=== PATIENT | female | born 1960 | race Caucasian/White ===

== ENCOUNTER 2017-06-17 00:55 | Inpatient (IN) | END 2017-07-08 00:40 | disposition home health service (06) | DRG 253 ==

== ENCOUNTER 2017-07-24 02:05 | Inpatient (IN) | END 2017-09-21 14:50 | DRG 698 ==

== ENCOUNTER 2017-12-12 09:42 | Emergency (ER) | END 2017-12-12 13:40 | disposition home or self-care (01) ==

== ENCOUNTER → 2018-06-01 | Outpatient (CLI) | payer OTHER ==
[~2018-06-01] MED LIST: AMLO-147 PO; IOHEXOL 300MG/ML 30 ML BTL ONE; LEVO500T48 PO; METO-319 PO
== END | disposition home or self-care (01) ==
LOC: RAD 15:04
PROVIDERS: ATTEND Urology
DX: N13.30 Unspecified hydronephrosis (principal)
CPT/HCPCS: 74425; Q9967; Z7610

== ENCOUNTER 2018-06-15 10:05 | Day surgery (SDC) | payer OTHER ==
--- NOTE | 2018-06-14 17:21 | HPN ---
Date/Time of Note Date/Time of Note DATE: 06/14/18 TIME: 17:21 Interval H&P Admission Note Pt. seen H&P reviewed: No system changes RYLAN LYNN MD Jun 14, 2018 17:21
[~2018-06-15] VITALS: Ht 152.4 cm; Wt 61.8 kg
[2018-06-15] VITALS (9 sets, daily range): BP systolic 128–155; BP diastolic 41–72; PULSE 71–102; RESP 16–20; Ht 152.4 cm; Wt 61.8 kg
[~2018-06-15 10:05] MED LIST changes: -IOHEXOL 300MG/ML 30 ML BTL ONE; +SOD CHLORIDE 0.9% 1,000 ML IV SCH
[2018-06-15] MEDS ORDERED: HYDR-3671 PO (11:26)
[2018-06-15] MEDS ORDERED: CLON-379 PO (11:26)
--- NOTE | 2018-06-15 12:45 | PREAC ---
Date/Time of Note Date/Time of Note DATE: 06/15/18 TIME: 12:43 Anesthesia Eval and Record Evaluation Time Pre-Procedure Interview DATE: 06/15/18 TIME: 12:43 Age 57 Sex female NPO: 8 hrs Preoperative diagnosis RIGHT HYDRONEPHROSIS Planned procedure RIGHT NEPHROSTOMY TUBE REPLACEMENT Past Medical History Past Medical History: Includes (CERVICAL CANCER) Cardio: HTN Heme: Anemia Surgery & Anesthesia Issues No known issue Meds Anticoagulation: No Beta Dilan within 24 hr: No Reason Beta Dilan not given: Pt. not on B-Dilan Reported Medications Hydralazine Hcl* (Hydralazine Hcl*) 25 Mg Tab, 25 MG PO BID, #90 TAB 06/15/18 Clonidine Hcl* (Clonidine Hcl*) 0.1 Mg Tab, 0.1 MG PO DAILY PRN for ELEVATED BLOOD PRESSURE, TAB 06/15/18 Amlodipine Besylate* (Amlodipine Besylate*) 10 Mg Tablet, 10 MG PO DAILY, #30 TAB 12/12/17 Discontinued Reported Medications Levofloxacin* (Levaquin*) 500 Mg Tablet, 500 MG PO DAILY, TAB PER PT HAS 3 DOSES LEFT 12/12/17 Metoprolol Succinate* (Toprol XL*) 50 Mg Tab.er.24h, 50 MG PO DAILY, #30 TAB 12/12/17 Current Medications Sodium Chloride 1,000 ml @ 30 mls/hr Q24H IV ; Start 06/14/18 at 17:30 Meds reviewed: Yes Allergies Coded Allergies: Penicillins (Verified Allergy, Mild, 06/15/18) Allergies Reviewed: Yes Labs/Studies Labs Reviewed: Reviewed by anesthesiologist test: N/A Pre-procedure Exam Last vitals Vital Signs Date Temp Pulse Resp B/P (MAP) Pulse Ox O2 O2 Flow FiO2 Time Delivery Rate 06/15/18 96.9 71 16 155/72 100 Room Air 11:39 (99) Airway: Adequate mouth opening, Adequate thyromental dist Mallampati: Mallampati II Teeth: Normal Lung: Normal Heart: Normal ASA Physical Status ASA physical status: 3 Emergency: None Planned Anesthetic General/MAC: MAC Planned Pain Management Parenteral pain med Pre-operative Attestations Prior to commencing anesthesia and surgery, the patient was re-evaluated, there was verification of: *The patient's identity *The results of appropriate recent lab work and preoperative vital signs *The above evaluation not changing prior to induction *Anesthetic plan, risk benefits, alternative and complications discussed with patient/family; questions answered; patient/family understands, accepts and wishes to proceed. Zach Morales M.D. Jun 15, 2018 12:45
[2018-06-15] MEDS ORDERED: MIDAZOLAM 1 MG/ML 2 ML INJ ONE (12:48)
[2018-06-15] MEDS ORDERED: FENTAnyl 50 MCG/ML VIAL ONE (12:48)
[2018-06-15] MEDS ORDERED: PROPOFOL 20 ML ONE (12:48)
[2018-06-15] MEDS ORDERED: ONDANSETRON 4 MG INJ ONE (12:50)
[2018-06-15] MEDS ORDERED: CEFAZOLIN 1 GM INJ ONE (12:50)
[2018-06-15] MEDS ORDERED: hydrALAzine 20 MG INJ IV PRN (13:00)
[2018-06-15] MEDS ORDERED: ALBUTEROL 0.083% (NEB) 2.5 MG/3 ML AMP HHN PRN (13:00)
[2018-06-15] MEDS ORDERED: FENTAnyl 50 MCG/ML VIAL IV PRN ×3 (13:00)
[2018-06-15] MEDS ORDERED: ONDANSETRON 4 MG INJ IV PRN (13:00)
[2018-06-15] MEDS ORDERED: IPRATROPIUM (NEB) 0.5 MG/2.5 ML AMP HHN PRN (13:00)
[2018-06-15] MEDS ORDERED: LABETALOL HCL 20MG INJ IV PRN (13:00)
[2018-06-15] MEDS ORDERED: OXYCODONE/ACETAMINOPHEN (5/325) TAB PO PRN ×2 (13:00)
[2018-06-15] MEDS ORDERED: HYDROmorphONE 1 MG/5 ML IV SYRINGE IV PRN ×3 (13:00)
[2018-06-15] MEDS ORDERED: EPHEDrine SULFATE 50 MG/5 ML SYG IV PRN (13:00)
[2018-06-15] MEDS ORDERED: DIPHENHYDRAMINE 50 MG INJ IV PRN (13:00)
[2018-06-15] MEDS ORDERED: MEPERIDINE 25 MG INJ IV PRN (13:00)
[2018-06-15] MEDS ORDERED: TRIMETHOBENZAMIDE 100 MG/ML VIAL IM PRN (13:00)
[2018-06-15] MEDS ORDERED: MIDAZOLAM 1 MG/ML 2 ML INJ IV PRN (13:00)
[2018-06-15] MEDS ORDERED: IOHEXOL 300MG/ML 30 ML BTL ONE (14:30)
[2018-06-15] MEDS ORDERED: LIDOCAINE 1% (MPF) 30 ML INJ ONE (14:30)
[2018-06-15] MEDS ORDERED: hydrALAzine 20 MG INJ ONE (14:58)
== END 2018-06-15 17:12 | disposition home or self-care (01) ==
LOC: SDS 10:05
PROVIDERS: ATTEND Radiology Diagnostic Radiology
DX: N13.30 Unspecified hydronephrosis (principal); I10 Essential (primary) hypertension
CPT/HCPCS: 50435; 74475; J0360; J0690; J2250; J2405; J3010; Q9967; Z7512; Z7610